=== PATIENT | male | born 1980 | race American Indian/Alaskan Native ===

== ENCOUNTER 2018-09-26 11:27 | Emergency (ER) | payer OTHER ==
--- NOTE | 2018-09-26 11:36 | Event Note ---
ED Screening Note Date of service: 09/26/18 Time: 11:34 ED Screening Note: 38 y/o male complaint episodes of loss time. Will dazed for few minutes. This initial assessment/diagnostic orders/clinical plan/treatment(s) is/are subject to change based on patients health status, clinical progression and re- assessment by fellow clinical providers in the ED. Further treatment and workup at subsequent clinical providers discretion. Patient/guardian urged not to elope from the ED as their condition may be serious if not clinically assessed and managed. Initial orders include:
[2018-09-26 12:15] LABS: Basophils % (Auto) 0.5 % (0.0-1.8); Eosinophils % (Auto) 0.3 % (0.0-4.3); Hematocrit 46.2 % (35.5-45.6); Hemoglobin 15.7 gm/dl (11.8-15.2); Lymphocytes # (Auto) 1.1 K/mm3 (1.2-5.4); Lymphocytes % (Auto) 15.7 % (13.4-35.0); Mean Corpuscular HGB Conc 34 % (32-34); Mean Corpuscular Volume 92 fl (84-94); Monocytes # (Auto) 0.5 K/mm3 (0.0-0.8); Monocytes % (Auto) 6.9 % (0.0-7.3); Platelet Count 221 K/mm3 (140-440); Red Blood Count 5.01 M/mm3 (3.65-5.03); Red Cell Distribution Width 13.1 % (13.2-15.2)
[2018-09-26 12:20] LABS: Alanine Aminotransferase 23 units/L (7-56); BUN/Creatinine Ratio 10; Blood Urea Nitrogen 10 mg/dL (9-20); Calcium 8.7 mg/dL (8.4-10.2); Hemolysis Index 11
--- NOTE | 2018-09-26 14:18 | Cat Scan Report ---
PROCEDURE: CT HEAD/BRAIN WO CON TECHNIQUE: CT of the head was performed without intravenous contrast. HISTORY: episosdes of "dazing" "blacking out" COMPARISONS: None FINDINGS: The ventricles are normal in position and shape. The ventricles are nondilated. No intracranial hemorrhage, mass, mass effect or evidence of acute ischemic infarct. The basilar cisterns are patent. The paranasal sinuses are clear. The mastoid air cells are clear. The orbits are intact. The calvarium is intact. No extracranial soft tissue swelling. IMPRESSION: No acute intracranial abnormality. This document is electronically signed by Elaina Mayes., September 26 2018 02:17:02 PM ET
--- NOTE | 2018-09-26 14:33 | Emergency Department Report ---
ED Neuro Deficit HPI - General Chief Complaint: Syncope Stated Complaint: BLACKING OUT Time Seen by Provider: 09/26/18 12:38 Source: patient, old records reviewed Mode of arrival: Ambulatory Limitations: No Limitations - History of Present Illness Initial Comments: 38-year-old male with history of "prolonged QT syndrome" presents to the hospital with episodes of dazing/acting out/day dreaming for the past 2 months. Patient states that episodes have occurred while sitting at his desk at home working alone and while driving. Episodes were unwitnessed. Patient reports being aware that feel like he is trapped in a daydreaming state and unable to mo ve. Episodes last less than 5 minutes. When he becomes re-aware he states he is confused and it takes a couple minutes to be oriented to self. He denies any loss of postural tone, tongue laceration/biting, urinary incontinence, or involuntary movements during these episodes. 2 years now as she does not have any lipsmacking or blinking but again each of these episodes were unwitnessed. Episode has even occurred while driving and patient did not lose control of the vehicle. He denies current headache, chest pain, shortness of breath, nausea, vomiting, or palpitations. On average episodes occur once a week it seems to be coming more frequent. Patient has not seen a physician because he was uninsured but he recently got insurance and now comes to the ER for evaluation. - Related Data Allergies/Adverse Reactions: Allergies Allergy/AdvReac Type Severity Reaction Status Date / Time No Known Allergies Allergy Unverified 09/26/18 11:36 ED Review of Systems ROS: Stated complaint: BLACKING OUT Other details as noted in HPI Comment: All other systems reviewed and negative ED Past Medical Hx - Past Medical History Additional medical history: Long QT - Surgical History Past Surgical History?: No - Social History Smoking Status: Never Smoker Substance Use Type: Alcohol ED Neuro Physical Exam - General Limitations: No Limitations Suspected Stroke: No - Neurological Exam Neurological exam: Present: alert - NIHSS Assessment Interval: Baseline 1a. Level of Consciousness: alert/keenly responsive 1b. LOC Questions: answers both correctly 1c. LOC Commands: performs tasks correctly 2. Best Gaze: normal 3. Visual: no visual loss 4. Facial Palsy: normal symmetrical movement 5b. Motor Arm Right: no drift 5a. Motor Arm Left: no drift 6a. Motor Leg Left: no drift 6b. Motor Leg Right: no drift 7. Limb Ataxia: absent 8. Sensory: normal 9. Best Language: no aphasia 10. Dysarthria: normal 11. Extinction/Inattention: no abnormality Total Score: 0 Stroke Severity: No Stroke Symptoms - Other Other exam information: General: No limitations, patient is alert in no acute distress Head exam: Atraumatic, normocephalic Eyes exam: Normal appearance, pupils equal reactive to light, extraocular movements intact ENT: Moist mucous membrane Neck exam: Normal inspection, full range of motion, no meningismus nontender Respiratory exam: Clear to auscultation bilateral, no wheezes, rales, crackles Cardiovascular: Normal rate and rhythm, normal heart sounds Abdomen: Soft, nondistended, and nontender, with normal bowel sounds, no rebound, or guarding Extremity: Full range of motion normal inspection no deformity Back: Normal Inspection, full range of motion, no tenderness Neurologic: Alert, oriented x3, cranial nerves intact, no motor or sensory deficit Psychiatric: normal affect, normal mood Skin: Warm, dry, intact ED Course Vital Signs 09/26/18 09/26/18 11:33 12:50 Temperature 98.2 F Pulse Rate 100 H Respiratory 18 17 Rate Blood Pressure 148/89 Blood Pressure 132/81 [Left] O2 Sat by Pulse 98 96 Oximetry - Lab Data Result diagrams: 09/26/18 11:47 09/26/18 11:47 Lab Results 09/26/18 09/26/18 09/26/18 Range/Units 11:47 11:47 11:47 WBC 7.1 (4.5-11.0) K/mm3 RBC 5.01 (3.65-5.03) M/mm3 Hgb 15.7 H (11.8-15.2) gm/dl Hct 46.2 H (35.5-45.6) % MCV 92 (84-94) fl MCH 31 (28-32) pg MCHC 34 (32-34) % RDW 13.1 L (13.2-15.2) % Plt Count 221 (140-440) K/mm3 Lymph % (Auto) 15.7 (13.4-35.0) % Ramsey % (Auto) 6.9 (0.0-7.3) % Eos % (Auto) 0.3 (0.0-4.3) % Baso % (Auto) 0.5 (0.0-1.8) % Lymph # 1.1 L (1.2-5.4) K/mm3 Ramsey # 0.5 (0.0-0.8) K/mm3 Eos # 0.0 (0.0-0.4) K/mm3 Baso # 0.0 (0.0-0.1) K/mm3 Seg Neutrophils % 76.6 H (40.0-70.0) % Seg Neutrophils # 5.4 (1.8-7.7) K/mm3 Sodium 136 L (137-145) mmol/L Potassium 4.3 (3.6-5.0) mmol/L Chloride 102.5 (98-107) mmol/L Carbon Dioxide 23 (22-30) mmol/L Anion Gap 15 mmol/L BUN 10 (9-20) mg/dL Creatinine 1.0 (0.8-1.5) mg/dL Estimated GFR > 60 ml/min BUN/Creatinine Ratio 10 % Glucose 102 H (75-100) mg/dL Calcium 8.7 (8.4-10.2) mg/dL Magnesium 1.80 (1.7-2.3) mg/dL Total Bilirubin 0.50 (0.1-1.2) mg/dL AST 19 (5-40) units/L ALT 23 (7-56) units/L Alkaline Phosphatase 68 (35-129) units/L Troponin T < 0.010 (0.00-0.029) ng/mL Total Protein 7.6 (6.3-8.2) g/dL Albumin 4.0 (3.9-5) g/dL Albumin/Globulin Ratio 1.1 % - EKG Data -: EKG Interpreted by Ut EKG shows normal: sinus rhythm, axis (qrs -4), intervals (qtc 450), QRS complexes (qrsd 84), ST-T waves (no stemi) Rate: tachycardia (101) When compared to previous EKG there are: previous EKG unavailable - Radiology Data Radiology results: report reviewed PROCEDURE: CT HEAD/BRAIN WO CON TECHNIQUE: CT of the head was performed without intravenous contrast. HISTORY: episosdes of "dazing" "blacking out" COMPARISONS: None FINDINGS: The ventricles are normal in position and shape. The ventricles are nondilated. No intracranial hemorrhage, mass, mass effect or evidence of acute ischemic infarct. The basilar cisterns are patent. The paranasal sinuses are clear. The mastoid air cells are clear. The orbits are intact. The calvarium is intact. No extracranial soft tissue swelling. IMPRESSION: No acute intracranial abnormality. - Medical Decision Making ED workup unremarkable. Patient when he follow up with cardiology, PMD, and neurology. Patient may be having seizure-like activity and will benefit from outpatient EEG and possible Holter monitoring. - Differential Diagnosis seizure, arrhythmia, absence seizure Critical Care Time: No Critical care attestation.: If time is entered above; I have spent that time in minutes in the direct care of this critically ill patient, excluding procedure time. ED Disposition Clinical Impression: Transient alteration of awareness Disposition: DC-01 TO HOME OR SELFCARE Is pt being admited?: No Does the pt Need Aspirin: No Condition: Stable Instructions: Altered Mental Status (ED) Additional Instructions: The causing a transient alteration in mental status is unknown at this time. Your symptoms may be due to a neurologic issues such seizures. ED workup here today which included basic labs and a CAT scan of the head were unremarkable. It is very important that you follow up with a primary care doctor, cardiologis t, and neurologist for further outpatient workup. Please return if symptoms worsen as indicated by your discharge instructions. Referrals: DEREK COCHRAN MD [Primary Care Provider] - 3-5 Days (Primary care doctor) [facility] [Provider Group] - 3-5 Days (Primary care clinic) NANCY ARGUETA MD [Staff Physician] - 3-5 Days ( Neurologist) DRHUV AYALA MD [Staff Physician] - 3-5 Days (Neurologist) FELIPE SANCHEZ MD [Staff Physician] - 3-5 Days ([employer]) Time of Disposition: 14:41
[2018-09-26 14:34] VITALS: BP 167/92
== END 2018-09-26 15:15 | disposition home or self-care (01) ==
LOC: ED 11:27
DX: R40.4 Transient alteration of awareness (principal)
CPT/HCPCS: 36415; 70450; 80053; 83735; 84484; 85025; 93005; 93010